=== PATIENT | female | born 1980 | race Hispanic/Latino ===

== ENCOUNTER 2018-12-04 18:52 | Inpatient (IN) | payer OTHER ==
[2018-12-04 22:43] VITALS: BMI 25.4
[2018-12-05 08:18] LABS: #Eosinphils 0.2 thou/uL (0.0-0.7); #Lymphocytes 1.9 thou/uL (1.20-3.40); #Monocytes 0.2 thou/uL (0.11-0.59); %Basophils 0.4 % (0.0-1.0); %Eosinophils 3.9 % (0.0-10.0); %Lymphocytes 34.8 % (21.0-51.0); %Monocytes 4.3 % (0.0-10.0); %Neutrophils 56.6 % (42.0-75.0); Hemoglobin 13.1 g/dL (12.0-16.0); Mean Corpuscular HGB CONC 33.6 g/dL (32.0-36.0); Mean Corpuscular Hemoglobin 27.8 pg (27.0-31.0); Mean Corpuscular Volume 82.7 fL (78.0-98.0); Mean Platelet Volume 8.6 fL (7.4-10.4); Platelet Count 204 thou/uL (130-400); RBC Distribution Width 12.8 % (11.5-14.5); Red Blood Cell (RBC) Count 4.69 mill/uL (4.20-5.40); White Blood Cell (WBC) Count 5.3 thou/uL (4.8-10.8)
[2018-12-05 08:26] LABS: PTT 29.1 SEC (22.9-36.1); Prothrombin Time 13.6 SEC (12.0-14.7)
[2018-12-05 08:36] LABS: ALT (SGPT) 66 U/L (8-55); AST (SGOT) 49 U/L (5-34); Albumin 3.7 g/dL (3.5-5.0); Alkaline Phosphatase 66 U/L (40-110); Anion Gap 10 mmol/L (10-20); BUN (Urea Nitrogen) 8 mg/dL (7.0-18.7); Bilirubin, Total 0.4 mg/dL (0.2-1.2); Calc. Creatinine Clearance 136 mL/min (70-130); Carbon Dioxide 21 mmol/L (22-29); Chloride 112 mmol/L (98-107); Estimated GFR-MDRD Greater than 90; Globulin 2.8 g/dL (2.4-3.5); Glucose 95 mg/dL (70-105); Potassium 3.7 mmol/L (3.5-5.1); Protein, Total 6.5 g/dL (6.0-8.3); Sodium 139 mmol/L (136-145)
[2018-12-05] MEDS ORDERED: Acetaminophen 325 MG TAB PO PRN (10:19)
[2018-12-05] MEDS ORDERED: Bisacodyl 10 MG SUPP PR PRN (10:19)
[2018-12-05] MEDS ORDERED: Senokot S 8.6-50 MG TAB PO PRN (10:19)
[2018-12-05] MEDS ORDERED: Ondansetron PF 4 MG/2 ML Vial IVP PRN (10:19)
[2018-12-05] MEDS ORDERED: Guaifenesin DM 100-10/5 ML UDCUP PO PRN (10:19)
[2018-12-05] MEDS ORDERED: HYDROcodone/Acetaminophen 5/325 mg Tablet PO PRN (10:19)
[2018-12-05] MEDS ORDERED: Morphine 2 MG/ML SYRINGE SLOW IVP PRN (10:24)
--- NOTE | 2018-12-05 10:58 | HP ---
REASON FOR ADMISSION: Snake bite with right hand cellulitis. 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 She was bitten by a snake, which was 1.5 feet long on her right middle finger. The finger and the right hand began to swell up with excruciating pain and swelling. She went to [facility], where she was given 6 vials of CroFab at 5:00 p.m. The snake bit her around 3:40 p.m. She was given a liter of normal saline, morphine and was transferred here from there. She has had a baseline fibrinogen level done, which was within normal limits. The patient says the pain is around 5 to 6/10 in intensity and the swelling is slowly coming down, but still she cannot flex her fingers or the wrist well. PAST MEDICAL AND SURGICAL HISTORY: None. ALLERGIES: NO KNOWN DRUG ALLERGIES. CURRENT MEDICATIONS: None. PERSONAL HISTORY: Does not abuse alcohol or drugs. 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 FAMILY HISTORY: Both parents are healthy and live in [facility]. The patient lives with her and 2 children, 13 and 7 years old. CODE STATUS: Full. Power of state's attorney is her . REVIEW OF SYSTEMS: CONSTITUTIONAL: Negative for weight loss or gain, ability to conduct usual activities. SKIN: Negative for rash, itching. EYES: Negative for double vision, pain. ENT/MOUTH: Negative for nose bleeding, neck stiffness, pain, tenderness. CARDIOVASCULAR: Negative for palpitations, dyspnea on exertion, orthopnea. RESPIRATORY: Negative for shortness of breath, wheezing, cough, hemoptysis, fever or night sweats. GASTROINTESTINAL: Negative for poor appetite, abdominal pain, heartburn, nausea , vomiting, constipation, or diarrhea. GENITOURINARY: Negative for urgency, frequency, dysuria, nocturia. MUSCULOSKELETAL: Negative for pain, swelling. NEUROLOGIC/PSYCHIATRIC: Negative for anxiety, depression. ALLERGY/IMMUNOLOGIC: Negative for skin rash, bleeding tendency. PHYSICAL EXAMINATION: GENERAL: The patient is a 38-year-old female, who is currently not in any acute distress. VITAL SIGNS: Blood pressure 130/86, pulse 76 per minute, respiratory rate 18 per minute, temperature 99 degrees on arrival, and saturating 99% on room air. NECK: Supple. No elevated JVD. HEENT: Eyes; extraocular muscles intact. Pupils reacting to light. Oral cavity, mucous membranes are moist. No exudates or congestion. CARDIOVASCULAR SYSTEM: S1 and S2 heard, regular rhythm. RESPIRATORY SYSTEM: Air entry 1+ bilateral. No rales or rhonchi. ABDOMEN: Soft. Bowel sounds heard. No tenderness, rigidity, or guarding. EXTREMITIES: Right hand has edema, which extends all the way up to 3/4 of her forearm. There is a small bite/fang dangelo on the extensor aspect of the middle phalanx of the middle finger. Erythema is slowly receding with skin markings showing the same. All other extremities show there is normal range of motion with no edema or redness. Peripheral pulses are 1+ in the right radial and ulnar. No obvious ischemic sign seen. CENTRAL NERVOUS SYSTEM: No gross focal motor deficits noted. The patient is alert, awake, and oriented well. PSYCHIATRIC SYSTEM: The patient's mood is euthymic. No hallucinations or delusions. LABORATORY DATA: White count of 5, hemoglobin and hematocrit of 13 and 38, platelet count 204 with 56% neutrophils, MCV is 82. PT, INR, and PTT within normal limits this morning. Fibrinogen repeat was 320, the first one was 335. Serum bicarb is 21, BUN 8, creatinine 0.6. AST 49, ALT 66, alkaline phosphatase 66. AST and ALT at [facility] were 16 and 19. Total bilirubin 0.4. Serum beta hCG screen is negative. Albumin is 3.7. CLINICAL IMPRESSION AND PLAN: The patient will be admitted to medical floor for snack bite, envenomation with right hand and forearm cellulitis. Her pain and swelling are slowly receding, but still it is present with right side being her dominant hand. She has received 6 vials of CroFab and we will closely monitor her. She will be on morphine p.r.n. for pain. There are no obvious signs of bleeding anywhere. Her LFTs were within normal limits on arrival, it bumped a little bit at present. We will closely monitor this with a repeat lab in the morning. She will be on a regular diet. We will encourage her to take oral fluids along with solid diet. Job ID: [id number] [facility]
[2018-12-05 11:56] LABS: HBCM Index 0.05 S/CO (0-0.79); HBSAg Index 0.23 S/CO (0-0.99); Hep A IgM AB Non-Reactive (NonReactive); Hep A IgM S/CO 0.13 S/CO (0-0.79); Hep B Surf Ag Non-Reactive S/CO (NonReactive); Hep C IgG Ab Non-Reactive (NonReactive); Hep C Index 0.14 S/CO (0-0.79); Hepatitis B Core IgM Abs Non-Reactive (NonReactive)
[2018-12-05] MEDS: Famotidine 20 MG TAB PO SCH (20:14)
[2018-12-06 06:16] LABS: #Basophils 0.1 thou/uL (0.0-0.2); #Eosinphils 0.3 thou/uL (0.0-0.7); #Lymphocytes 2.4 thou/uL (1.20-3.40); #Monocytes 0.4 thou/uL (0.11-0.59); #Neutrophils 3.4 thou/uL (1.40-6.50); %Basophils 0.9 % (0.0-1.0); %Eosinophils 4.2 % (0.0-10.0); %Lymphocytes 36.6 % (21.0-51.0); %Monocytes 5.3 % (0.0-10.0); Hemoglobin 12.6 g/dL (12.0-16.0); Mean Corpuscular HGB CONC 33.2 g/dL (32.0-36.0); Mean Corpuscular Hemoglobin 27.5 pg (27.0-31.0); Mean Corpuscular Volume 82.9 fL (78.0-98.0); Mean Platelet Volume 8.8 fL (7.4-10.4); Platelet Count 205 thou/uL (130-400); RBC Distribution Width 12.9 % (11.5-14.5); Red Blood Cell (RBC) Count 4.57 mill/uL (4.20-5.40); White Blood Cell (WBC) Count 6.5 thou/uL (4.8-10.8)
[2018-12-06 06:37] LABS: ALT (SGPT) 43 U/L (8-55); AST (SGOT) 19 U/L (5-34); Albumin 3.7 g/dL (3.5-5.0); Alkaline Phosphatase 61 U/L (40-110); Anion Gap 9 mmol/L (10-20); BUN (Urea Nitrogen) 6 mg/dL (7.0-18.7); Bilirubin, Total 0.5 mg/dL (0.2-1.2); Calc. Creatinine Clearance 125 mL/min (70-130); Calcium 8.5 mg/dL (7.8-10.44); Carbon Dioxide 23 mmol/L (22-29); Chloride 110 mmol/L (98-107); Estimated GFR-MDRD Greater than 90; Globulin 2.7 g/dL (2.4-3.5); Glucose 96 mg/dL (70-105); Potassium 3.9 mmol/L (3.5-5.1); Protein, Total 6.4 g/dL (6.0-8.3); Sodium 138 mmol/L (136-145)
[2018-12-06 08:18] VITALS: BP 109/70; TEMP 99.2
[2018-12-06] MEDS: Famotidine 20 MG TAB PO SCH (09:42)
--- NOTE | 2018-12-07 08:30 | DIS ---
DATE OF ADMISSION: 12/04/2018 DATE OF DISCHARGE: 12/06/2018 PCP: None. DISPOSITION: Discharged home. FINAL DIAGNOSIS: Snake bite, venomous snake. DISCHARGE MEDICINES: None. ALLERGIES: NONE. DIET: As tolerated. PENDING AT TIME OF DISCHARGE: Nothing. HOSPITAL COURSE: The patient referred from [place] to [facility], admitted to the [facility] after being bitten on the right hand and having marked swelling up to the wrist. She received CroFab as an outpatient. Her CBC was normal yesterday and today. She had minimal elevations of AST and ALT yesterday. They were normalized today. Renal functions normal. Serology done for reasons unknown are normal. Coagulation was normal. The examination today revealed that the swelling and pain in the hand was 90 plus percent resolved. She was able to have the fingers touched without significant pain. She is being discharged. She has been advised she needs to find a PCP for followup. Tylenol for pain. Return to the hospital if she gets worse. Job ID: [id number]
== END 2018-12-06 12:15 | disposition home or self-care (01) | DRG 918 ==
LOC: ERS 18:52 → OBSVTOIN 21:42 → T4-A 21:42
PROVIDERS: ADMIT Hospitalist; ATTEND Hospitalist
DX: T63.091A Toxic effect of venom of other snake, accidental (unintentional), initial encounter (principal); L03.113 Cellulitis of right upper limb; Y92.218 Other school as the place of occurrence of the external cause
CPT/HCPCS: 36415; 80053; 80074; 85025; 85384; 85610; 85730; 99284